=== PATIENT | female | born 1955 | race African-American/Black ===

== ENCOUNTER → 2019-11-17 | Outpatient (CLI) | payer OTHER ==
[~2019-11-17] MED LIST: CRESTOR5 MG PO; LOSARTAN-HCTZ1 EACH PO
== END ==
LOC: CAT 07:47
DX: Z13.6 Encounter for screening for cardiovascular disorders (principal); E78.00 Pure hypercholesterolemia, unspecified; I25.10 Atherosclerotic heart disease of native coronary artery without angina pectoris